=== PATIENT | male | born 1950 | race Caucasian/White ===

== ENCOUNTER 2022-08-01 08:41 | Emergency (ER) | payer MEDICARE, OTHER ==
[~2022-08-01] VITALS: Ht 177.8 cm; Wt 92.5 kg
[~2022-08-01 08:41] MED LIST: ASPI81TA31 PO; CRESTOR; LEXAPRO; METOPROLOL
--- NOTE | 2022-08-01 11:01 | NUR ---
Applied elastic bandage to pt's right wrist and hand, PMS intact afterwards. Gave pt d/c instructions, pt verbalized understanding.
== END 2022-08-01 11:05 | disposition home or self-care (01) ==
LOC: ER 08:41
DX: S32.10XA Unspecified fracture of sacrum, initial encounter for closed fracture (principal); W18.2XXA Fall in (into) shower or empty bathtub, initial encounter; Y93.E1 Activity, personal bathing and showering; Y92.012 Bathroom of single-family (private) house as the place of occurrence of the external cause; S09.90XA Unspecified injury of head, initial encounter; S60.221A Contusion of right hand, initial encounter; M50.30 Other cervical disc degeneration, unspecified cervical region; I10 Essential (primary) hypertension; I25.2 Old myocardial infarction; R73.03 Prediabetes; Z79.82 Long term (current) use of aspirin; Z79.899 Other long term (current) drug therapy
CPT/HCPCS: 70450; 72125; 72220; 73130; A4663

== ENCOUNTER 2022-08-18 08:25 | Emergency (ER) | payer MEDICARE, OTHER ==
[~2022-08-18] VITALS: Ht 177.8 cm; Wt 93.0 kg
--- NOTE | 2022-08-18 08:51 | NUR ---
PT IS IN ROOM #2A. DR GARCIA EVALUATED THE PT.
--- NOTE | 2022-08-18 10:02 | NUR ---
PT WAS D/C'd TO HOME. D/C INSTRUCTIONS GIVEN TO THE PT BY DR GARCIA.
[2022-08-18 10:04] VITALS: BP 141/71
== END 2022-08-18 10:05 | disposition home or self-care (01) ==
LOC: ER 08:25
DX: S63.91XA Sprain of unspecified part of right wrist and hand, initial encounter (principal); S60.511A Abrasion of right hand, initial encounter; W18.2XXA Fall in (into) shower or empty bathtub, initial encounter; Y93.E1 Activity, personal bathing and showering; Y92.012 Bathroom of single-family (private) house as the place of occurrence of the external cause; M19.041 Primary osteoarthritis, right hand; E78.5 Hyperlipidemia, unspecified; I10 Essential (primary) hypertension; I25.2 Old myocardial infarction; I25.10 Atherosclerotic heart disease of native coronary artery without angina pectoris; Z95.1 Presence of aortocoronary bypass graft; R73.03 Prediabetes; Z79.82 Long term (current) use of aspirin; Z79.899 Other long term (current) drug therapy
CPT/HCPCS: 73130; A4663